=== PATIENT | female | born 1990 | race Caucasian/White ===

== ENCOUNTER 2019-03-19 08:16 | Emergency (ER) | payer OTHER ==
[~2019-03-19] VITALS: Ht 162.6 cm; Wt 54.5 kg
[2019-03-19] MEDS ORDERED: D 101000 PO (08:30)
[2019-03-19] MEDS ORDERED: FLON1SPR NARES (09:45)
[2019-03-19] MEDS ORDERED: PATA0.2S OP (09:45)
[2019-03-19] MEDS ORDERED: CETI10CA2 PO (09:45)
[2019-03-19 09:49] VITALS: BP 115/74
== END 2019-03-19 09:59 | disposition home or self-care (01) ==
LOC: M ED 08:16
DX: J30.2 Other seasonal allergic rhinitis (principal); N20.0 Calculus of kidney; N28.1 Cyst of kidney, acquired; Z84.1 Family history of disorders of kidney and ureter; E55.9 Vitamin D deficiency, unspecified

== ENCOUNTER → 2019-03-19 | Outpatient (CLI) | payer OTHER ==
[~2019-03-19] MED LIST: CETI10CA2 PO; D 101000 PO; FLON1SPR NARES; PATA0.2S OP
--- NOTE | 2019-03-19 09:32 | REP ---
CT ABDOMEN AND PELVIS WITHOUT IV OR ORAL CONTRAST: Renal stone protocol. HISTORY: Right flank pain. Question kidney stone. CT FINDINGS: Preliminary digital vascular sonographer radiograph is unremarkable. Bowel gas pattern is normal with moderate stool throughout. The lung bases are clear on axial CT images. The liver and the spleen are normal in size, homogeneous in texture. No abnormality is noted in the gallbladder or in the pancreas. No adrenal lesion is seen on either side. There is a tiny 3 mm intrarenal calculus at the lower pole level in the right kidney. There is an even smaller calcification in the lower pole on the left. There is a low-density cyst in the lateral cortex of the left kidney which measures 1.1 cm. No hydronephrosis is seen on either side. No ureteral or bladder calculus is appreciated. There are phleboliths in the pelvis bilaterally. No uterine or ovarian lesion is appreciated. A normal appendix is seen in the right lower quadrant. Small and large bowel loops are unremarkable on axial CT images. No abdominal wall defect is appreciated. There is some mild linear fibrosis across the suprapubic region of the anterior abdominal wall suggesting previous . No bony destructive lesion is appreciated. IMPRESSION: There is a small intrarenal calculus in each kidney lower pole. 1.1 cm left renal cyst. No hydronephrosis or ureteral stone or bladder stone is seen. Otherwise negative CT study abdomen and pelvis without contrast. Normal appendix seen. Electronically Signed by Jeramie Gayle MD 03/19/2019 09:57 A
== END ==
LOC: M RAD 07:29
PROVIDERS: ATTEND Family Medicine
DX: N20.0 Calculus of kidney (principal); N28.1 Cyst of kidney, acquired